=== PATIENT | female | born 1965 | race Caucasian/White ===

== ENCOUNTER 2017-08-30 05:54 | Day surgery (SDC) | payer OTHER ==
[~2017-08-30] VITALS: Ht 154.9 cm; Wt 51.8 kg
[~2017-08-30 05:54] MED LIST: LEVO50 PO; VENL-193 PO
[2017-08-30] MEDS ORDERED: LIDOCAINE HCL/PF 2% 5 ML VIAL INJ ONE (05:55)
[2017-08-30] MEDS ORDERED: 0.9% SODIUM CHLORIDE 10 ML VIAL IVP ONE (05:55)
[2017-08-30] MEDS ORDERED: PROPOFOL 1% 20 ML VIAL IVP ONE (05:55)
[2017-08-30] MEDS ORDERED: EPHEDrine SULFATE 50 MG/ML VIAL IVP ONE (05:55)
[2017-08-30] MEDS ORDERED: SODIUM CHLORIDE 0.9% 1,000 ML IV ONE ×2 (06:19→06:28)
[2017-08-30] MEDS ORDERED: CeFAZolin 1 GM/DEXTROSE 50 ML IV ONE ×2 (06:28→06:30)
[2017-08-30] MEDS ORDERED: LORazepam 2 MG/ML VIAL IVP PRN (06:30)
[2017-08-30 06:42] LABS: BASOPHILS # (AUTO) 0.02 K/uL (0.00-0.20); BASOPHILS % (AUTO) 0.6 % (0.0-2.0); EOSINOPHILS # (AUTO) 0.02 K/uL (0.00-0.70); EOSINOPHILS % (AUTO) 0.87 % (1.0-6.0); HEMOGLOBIN 9.1 g/dL (12.0-16.0); LYMPHOCYTES # (AUTO) 0.8 K/uL (1.0-4.8); LYMPHOCYTES % (AUTO) 28.2 % (22.0-44.0); MEAN CORPUSCULAR HEMOGLOBIN 30.6 pg (26.0-34.0); MEAN CORPUSCULAR HGB CONC 33.7 G/dL (31.0-37.0); MEAN CORPUSCULAR VOLUME 91 fL (80-100); MONOCYTES # (AUTO) 0.4 K/uL (0.1-1.0); MONOCYTES % (AUTO) 13.5 % (2.0-9.0); NEUTROPHILS # (AUTO) 1.6 K/uL (1.8-7.7); NEUTROPHILS % (AUTO) 56.8 % (40.0-70.0); PLATELET COUNT (AUTO) 224 K/uL (150-450); RED BLOOD CELL COUNT(AUTO) 2.97 MIL/uL (4.00-5.20); WHITE BLOOD COUNT (AUTO) 2.8 K/uL (4.5-11.0)
[2017-08-30 06:52] LABS: INR 1.1 (0.9-1.1); PROTHROMBIN TIME 11.4 SEC (9.4-11.6)
[2017-08-30 06:53] LABS: ANION GAP 7 mmol/L (8-16); CALCIUM, TOTAL 8.9 mg/dL (8.8-10.5); CARBON DIOXIDE 31 mmol/L (22-29); CHLORIDE 103 mmol/L (98-107); CREATININE 0.59 mg/dL (0.60-1.30); GLOMERULAR FILTR. RATE CALC > 60 mL/min (>60); POTASSIUM 3.7 mmol/L (3.5-5.1); SODIUM SERUM 141 mmol/L (136-145); UREA NITROGEN, BLOOD 8 mg/dL (7-18)
[2017-08-30 06:58] LABS: ALANINE AMINOTRANSFERASE 46 U/L (12-78); ALBUMIN 3.6 g/dL (3.4-5.0); ASPARTATE AMINOTRANSFERASE 47 U/L (15-37); BILIRUBIN,TOTAL 0.2 mg/dL (0.1-1.0); TOTAL PROTEIN, SERUM 6.8 g/dL (6.4-8.2)
[2017-08-30] MEDS ORDERED: ACETAMINOPHEN 1000 MG/ISO-OSM 100 ML IV ONE (07:00)
[2017-08-30] MEDS ORDERED: LIDOCAINE HCL/PF 1% 30 ML VIAL ONE (07:33)
[2017-08-30] MEDS ORDERED: MEPERIDINE-PF 25 MG/ML SYRINGE IVP PRN (08:15)
[2017-08-30] MEDS ORDERED: HYDROmorphone 2 MG/ML SYRINGE IVP PRN ×2 (08:15→09:15)
[2017-08-30] MEDS ORDERED: FentaNYL CITRATE-PF 100 MCG/2 ML VIAL IVP PRN (08:15)
[2017-08-30] MEDS ORDERED: SODIUM CHLORIDE 0.9% 1,000 ML IV SCH (09:13)
[2017-08-30] MEDS ORDERED: HYDROmorphone HCL 2 MG TABLET PO ONE (09:15)
[2017-08-30] MEDS ORDERED: OxyCODONE HCL/ACETAMINOPHEN 5-325 MG TABLET PO PRN ×2 (09:15)
[2017-08-30] MEDS ORDERED: HYDROmorphone HCL 2 MG TABLET ONE (09:39)
[2017-08-30] MEDS ORDERED: HYDROmorphone 2 MG/ML SYRINGE ONE (10:18)
[2017-08-30] MEDS ORDERED: FentaNYL CITRATE-PF 100 MCG/2 ML VIAL IVP ONE (12:00)
[2017-08-30] MEDS ORDERED: KETAMINE HCL 50 MG/ML 10 ML VIAL IVP ONE (12:00)
[2017-08-30] MEDS ORDERED: MIDAZOLAM HCL 2 MG/2 ML VIAL IVP ONE (12:00)
[2017-08-30] MEDS ORDERED: OXYGEN THERAPY IH SCH (20:00)
== END 2017-08-30 12:40 | disposition home or self-care (01) ==
LOC: SURGERY 05:54 → EDSTATUS 07:30 → SURGERY 12:40
PROVIDERS: ATTEND Radiology Diagnostic Radiology
DX: C79.51 Secondary malignant neoplasm of bone (principal); Z85.3 Personal history of malignant neoplasm of breast; Z90.12 Acquired absence of left breast and nipple; Z79.899 Other long term (current) drug therapy
CPT/HCPCS: 20983; 36415; 80053; 85025; 85610; C2618; J0131; J0690; J1170; J2250; J2704; J3010; J3490 ×4; J7030; 77012; 99152; 99153